=== PATIENT | male | born 1975 | race Caucasian/White ===

== ENCOUNTER 2022-10-04 08:24 | Day surgery (SDC) | payer BC ==
[~2022-10-04 08:24] MED LIST: Lactated Ringers 1,000 ML IV SCH
[2022-10-04] MEDS ORDERED: Lidocaine 2% 5 ML SDV ONE (09:29)
[2022-10-04] MEDS ORDERED: Propofol 200 MG/20 ML SDV ONE ×4 (09:29→10:12)
[2022-10-04] MEDS ORDERED: Lactated Ringers 1,000 ML IV SCH (10:30)
== END 2022-10-04 10:58 | disposition home or self-care (01) ==
LOC: MW.SDS 08:24
PROVIDERS: ATTEND Surgery
DX: Z12.11 Encounter for screening for malignant neoplasm of colon (principal); K57.30 Diverticulosis of large intestine without perforation or abscess without bleeding; K64.4 Residual hemorrhoidal skin tags; Z79.899 Other long term (current) drug therapy; Z80.0 Family history of malignant neoplasm of digestive organs; Z87.891 Personal history of nicotine dependence
CPT/HCPCS: 45378; J2704; J7120; J3490